=== PATIENT | female | born 1935 | race Caucasian/White ===

== ENCOUNTER 2023-08-12 09:14 | Outpatient (RCR) | payer MEDICARE, SELFPAY ==
--- NOTE | 2023-08-13 07:50 | HP.OTEVAL_ITS ---
Patient's Visit Information Visit Information Visit Information: KASSANDRA SHELDON is a 88 year old F, referred to Occupational Therapy by FRANCISCA DOMINGUEZ, with a diagnosis of lymphedema BLE. Date of Evaluation: 08/12/23 Occupational Therapist: TONY Ryan/Ulises, CHT Subjective Subjective: This 88 year old female was seen for OT eval with dx of bilateral LE lymphedema. Pt arrives with her dtr. Both give input on her PMH of LE lymphedema, open wounds and systemic infection. and cardiac hx. Pt arrives with knee high compression socks on- unsure of compression class- has short stretch wraps with padding- pt states she typically will wear her knee high compression socks and wrap her legs from knees up to her mid thigh, because she can not reach her feet to wrap her own legs. pt does state she has not wrapped thighs lately. Pt states she does have thigh high compression hose but has not worn them due to her leg size. ( unsure of compression class) pt sleeps in recliner (lift chair) as back pain prevents her from sleeping in her bed. Dtr states pt does fall asleep in chair for 4-5 hours and feet are down. Pt does have a compression pump but has not used recently. As pt had recent move to [place] she is getting established with family and will see a diesel engine operator in Aug. Lymphedema (Circumferential Measure) Mid-foot: right 24cm left 25cm Ankle: right 28.5cm left 25cm Lower calf: right 32cm left 32cm Largest calf: right 40cm left 42cm Below knee: right 47 right 52cm Above knee: right 55 right 58cm Mid-thigh: right 58cm right 67cm Lower Exremity Comments: pt demo with fibrotic tissue throughout BLE. Lower Limb Functional Index Lower Extremity Functional Score: 8 Goals Goal: Patient will demonstrate a 20% reduction in edema by discharge: Yes Goal: Patient will demonstrate adequate knowledge of self-bandaging by the end of the first week.: Yes Goal: Patient will demonstrate adequate knowledge of self-massage by the end of the second week.: Yes Goal: Patient will demonstrate adequate knowledge of skin care and precautions by the end of the first week.: Yes Goal: Patient will demonstrate adequate knowledge of therapeutic exercises by discharge.: Yes Goal: Patient will select an appropriate compression garment and demonstrate adequate knowledge of correct donning technique, care and wearing schedule by discharge.: Yes Goal: Patient will voice understanding of need to replace compression garment every four to six months by discharge.: Yes Goal:: family will demo understanding of compression garment and compression pump use( if cleared by cardio dr) by d/c Rehabilitation General Assessment: pt demo with stage III lymphedema with fibrosis tissue. pt has thin skin and is at risk for blisters/wounds. Pt demo need for skilled OT services 1x week for 4 weeks to ed. pt and pts family on life long lymphedema mtg. Ed. on replacement of compression garments 30-40mmHg every 4-6 months, lymph stimulation exercise, self manual lymph massage, as well as short stretch wrapping/ Velcro closure compression devices. will need ed. on skin care and precautions as well as avoidance of sitting in chair with feet down for long periods of time. Today therapist ed. pt to return to her prior level of wrapping,(may wrap legs at night and use compression socks during the day) use of her knee high compression socks, cont. her lotion on legs, as well as avoiding sitting with feet down, therapist advised pt to get up and ambulate every 45 min. Due to swelling and pts hx of cardiac with stents will wait to get cleared by her new diesel engine operator ensure no risk of returning to use compression pump. Family to find out what type of compression pump pt has. Family and pt demo understanding and agree to POC. Rehabilitation Potential: Questionable Anticipated Interventions Anticipated Interventions: Education re assistive Equipment, Education re Diagnosis, Education re Life-long lymphedema Management, Education re Self- Bandaging Techniques, Education re Skin Care and Precautions, Education re Self Massage Techniques, Education re Correct Donning Tech,Care&Wearing Sched Comp Garments, Caregiver Training and Home Program Visit Plan Frequency: 1x/Week Duration: 4 Weeks TEXT: Thank you for the opportunity to evaluate your patient. For Medicare and Medicare HMO plans, please review the plan of care and approve it. It will need to be FAXED BACK to us at [phone] for Medicare purposes. Please let me know if there are questions or concerns regarding this plan of care. Physician Signature: Date:
--- NOTE | 2023-12-02 14:00 | HP.OTDCNRP_ITS ---
Patient Information Patient Information: KASSANDRA SHELDON was seen in my office for initial evaluation on 08/12/23. The following Plan of Care was established for this patient: POC Established Initial Frequency: 1x/Week Initial Duration: 4 Weeks Anticipated Interventions Anticipated Interventions: Education re assistive Equipment, Education re Diagnosis, Education re Life-long lymphedema Management, Education re Self- Bandaging Techniques, Education re Skin Care and Precautions, Education re Self Massage Techniques, Education re Correct Donning Tech,Care&Wearing Sched Comp Garments, Caregiver Training and Home Program Last Seen Last Seen: This patient was last seen in our office 08/12/23. Pertinent comments regarding their Occupational therapy will appear below: pt was seen for OT jamie. No further apts scheduled at this time. Due to time lapse in services pt is d/c. At this point I will be discontinuing this patient from occupational therapy. I would be happy to see this patient again in the future if found appropriate by the physician. Thank you! Deepa Szymanski, OTR/L, CHT
== END 2023-08-12 19:00 | disposition home or self-care (01) ==
LOC: OT 09:14
PROVIDERS: PCP Nurse Practitioner Adult Health; Referring Provider Nurse Practitioner Adult Health; Visit Provider Nurse Practitioner Adult Health
DX: I89.0 Lymphedema, not elsewhere classified (principal)
CPT/HCPCS: 97166; 97530